=== PATIENT | female | born 1955 | race Caucasian/White ===

== ENCOUNTER 2020-09-17 11:36 | Emergency (ER) | payer MEDICARE ==
[~2020-09-17 11:36] MED LIST: CYCLOBENZAPRINE5 MG PO; MEDROL4 MG PO; TORADOL 10 MG T10 MG PO
[2020-09-17 14:35] LABS: BUN/CREATININE RATIO 25 (0-10)
[2020-09-17 15:07] LABS: HEMOGLOBIN 14.4 gm/dl (12.3-15.3); RED BLOOD COUNT 4.74 M/UL (4.00-5.10); WHITE BLOOD COUNT 9.2 K/UL (4.5-11.0)
[2020-09-17] MEDS ORDERED: VIBRAMYCIN 100100 MG PO (16:08)
[2020-09-17] MEDS ORDERED: IBUPROFEN800 MG PO (16:08)
== END 2020-09-17 16:25 | disposition home or self-care (01) ==
LOC: ER1 11:36
PROVIDERS: Physician Assistant Medical
DX: M25.512 Pain in left shoulder (principal); J44.0 Chronic obstructive pulmonary disease with (acute) lower respiratory infection; J18.9 Pneumonia, unspecified organism; E78.5 Hyperlipidemia, unspecified; E11.51 Type 2 diabetes mellitus with diabetic peripheral angiopathy without gangrene; Z90.49 Acquired absence of other specified parts of digestive tract; Z90.710 Acquired absence of both cervix and uterus; Z87.891 Personal history of nicotine dependence
CPT/HCPCS: 71045; 73030; 80053; 82550; 82553; 83874; 84484; 85025; 93005; 99284

== ENCOUNTER → 2021-12-04 | Outpatient (CLI) | payer MEDICARE, BC ==
[~2021-12-04] MED LIST changes: +IBUPROFEN800 MG PO; +VIBRAMYCIN 100100 MG PO
== END ==
LOC: OPSV 12:49
DX: E86.0 Dehydration (principal); C21.0 Malignant neoplasm of anus, unspecified
CPT/HCPCS: 96360; 96361

== ENCOUNTER → 2021-12-05 | Outpatient (CLI) | payer MEDICARE, BC ==
[~2021-12-05] VITALS: Ht 167.6 cm; Wt 79.8 kg
== END ==
LOC: OPSV 12:48
DX: E86.0 Dehydration (principal); C21.0 Malignant neoplasm of anus, unspecified
CPT/HCPCS: 96360; 96361; J1642

== ENCOUNTER → 2022-01-16 | Outpatient (CLI) | payer MEDICARE, BC | LOC: OPSV 14:00 | DX: Z45.2 Encounter for adjustment and management of vascular access device (principal); E86.0 Dehydration; C77.9 Secondary and unspecified malignant neoplasm of lymph node, unspecified; C80.1 Malignant (primary) neoplasm, unspecified | CPT/HCPCS: 96360; J1642 ==

== ENCOUNTER → 2022-01-21 | Outpatient (CLI) | payer MEDICARE, BC ==
[~2022-01-21] VITALS: Ht 167.6 cm; Wt 78.0 kg
== END ==
LOC: OPSV 13:02
DX: E86.0 Dehydration (principal); C77.9 Secondary and unspecified malignant neoplasm of lymph node, unspecified; C80.1 Malignant (primary) neoplasm, unspecified
CPT/HCPCS: 96360; J1642; J7030

== ENCOUNTER → 2022-01-23 | Outpatient (CLI) | payer MEDICARE, BC ==
[~2022-01-23] VITALS: Ht 167.6 cm; Wt 78.0 kg
== END ==
LOC: OPSV 13:42
DX: E86.0 Dehydration (principal); C77.9 Secondary and unspecified malignant neoplasm of lymph node, unspecified; C80.1 Malignant (primary) neoplasm, unspecified
CPT/HCPCS: 96360; J1642; J7030

== ENCOUNTER → 2022-01-29 | Outpatient (CLI) | payer MEDICARE, BC ==
[~2022-01-29] VITALS: Ht 167.6 cm; Wt 78.0 kg
== END ==
LOC: OPSV 13:08
DX: E86.0 Dehydration (principal); C80.1 Malignant (primary) neoplasm, unspecified; C77.9 Secondary and unspecified malignant neoplasm of lymph node, unspecified
CPT/HCPCS: 96365; J1642

== ENCOUNTER → 2022-01-31 | Outpatient (CLI) | payer MEDICARE, BC ==
[~2022-01-31] VITALS: Ht 167.6 cm; Wt 78.0 kg
== END ==
LOC: OPSV 12:48
DX: E86.0 Dehydration (principal); C77.9 Secondary and unspecified malignant neoplasm of lymph node, unspecified; C80.1 Malignant (primary) neoplasm, unspecified
CPT/HCPCS: 96360; J1642